=== PATIENT | male | born 1955 | race Caucasian/White ===

== ENCOUNTER 2016-12-31 17:51 | Emergency (ER) ==
[2016-12-31] MEDS ORDERED: NITROGLYCERIN SL PRN (18:06)
[2016-12-31] MEDS ORDERED: ASPIRIN PO STA (18:06)
--- NOTE | 2016-12-31 18:16 | ED EKG INTERP ---
EKG Interpretation - EKG Time of EKG reading by physician:: 18:04 EKG Read and Signed by:: Gamaliel Engle EKG Interpretation (*Must complete 3 of following elements*): Abnormal ( Possible L atrial enlargement; Nonspecific ST abnormality) Rate: 94 Rhythm: NSR Attestation - Scribe Verification/Attestation Scribe:: George Marte Acting as Scribe for:: Gamaliel Engle Scribe documention review:: This chart was documented by a scribe and accurately reflects the service the provider performed and the decisions made by the provider.
--- NOTE | 2016-12-31 18:43 | PROVIDER DOCUMENTATION ---
HPI-Chest Pain - General Source: patient, family - History of Present Illness-CP Location: reports: substernal Chest Pain Radiation: reports: no radiation Quality of Pain: reports: fullness, pressure Severity in ED: moderate Onset/Duration: unsure Timing: still present, intermittent Modifying Factors: improves with: other (belching) Associated Symptoms: reports: abdominal pain. denies: back pain, diaphoresis, dizziness, edema, fatigue, fever/chills, headache, heartburn, nausea, rash, shortness of breath, swelling/lump in chest, syncope, vomiting, weakness Prior Chest Pain/Cardiac Workup: reports: echocardiography <George Marte - Last Filed: 12/31/16 21:30> <Gamaliel Engle - Last Filed: 01/01/17 04:29> - General Chief Complaint: Chest Pain Stated Complaint: CHEST PAIN Time Seen by Provider: 12/31/16 18:20 Allergies/Adverse Reactions: Patient Allergies Allergy/AdvReac Type Severity Reaction Status Date / Time No Known Allergies Allergy Verified 12/31/16 19:06 Home Medications: Home Medication List Medication Instructions Recorded Confirmed Last Taken Type Amlodipine [Norvasc] 5 mg PO DAILY 12/31/16 12/31/16 12/31/16 History Aspirin EC 81 mg PO QHS 12/31/16 12/31/16 1 Day Ago History Hydroxyurea 500 mg PO QAM 12/31/16 12/31/16 12/31/16 History Isosorbide Mononitrate [Isosorbide 60 mg PO QAM 12/31/16 12/31/16 12/31/16 History Mononitrate ER] Losartan/Hydrochlorothiazide 1 each PO QAM 12/31/16 12/31/16 12/31/16 History [Losartan-Hctz 100-12.5 mg Tab] Metoprolol Succinate E.r. [Toprol 50 mg PO BID 12/31/16 12/31/16 12/31/16 History Xl] Prasugrel [Effient] 10 mg PO DAILY 12/31/16 12/31/16 12/31/16 History SIMVAstatin [Zocor] 10 mg PO QHS 12/31/16 12/31/16 12/30/16 History - History of Present Illness-CP Nature of Presenting Problem: Pt is a 61 yom who presents to ER with CC of substernal chest pain that has been intermittent x1 week. Pt and family report that pt is scheduled for a heart cath tomorrow at [place] at 0830 in the morning. Family reports that pt has hx of GI problems and is always belching. Pt reports that he has been to the hospital (multiple hospitals) x4 within the past 2 weeks, but all labs, radiology, ekg's show no acute cause for pt's chest pain. (George Marte) Review of Systems - Adult - REVIEW OF SYSTEMS - ADULT Constitutional: denies: chills, fever, fatique, night sweats, weight gain, weight loss Eyes: reports: no symptoms reported Ears, Nose, Mouth & Throat: reports: no symptoms reported Cardiovascular: reports: chest pain. denies: edema, heart murmur, irregular heart rate, orthopnea, palpitations, poor circulation, PND, syncope Respiratory: denies: chronic cough, cough, dyspnea on exertion, excessive sputum production, hemoptysis, pleurisy, shortness of breath, wheezing Gastrointestinal: reports: abdominal pain, other (frequent belching). denies: hematemesis, constipation, diarrhea, difficulty swallowing, frequent heartburn, nausea, poor appetite, rectal bleeding, vomiting Genitourinary: reports: no symptoms reported Musculoskeletal: reports: no symptoms reported Integumentary: reports: no symptoms reported Neurological: reports: no symptoms reported Psychiatric: reports: no symptoms reported Endocrine: reports: no symptoms reported Hematologic/Lymphatic: reports: no symptoms reported Allergic/Immunologic: reports: no symptoms reported All Other Systems: Reviewed and Negative <George Marte - Last Filed: 12/31/16 21:30> Past History - Adult - PAST MEDICAL HISTORY-ADULT Review of Records: reports: Nursing Assessment Review, Medications Reviewed - IMMUNIZATION STATUS Childhood Immunizations: See Nurse Assessment Flu Vaccine: See Nurse Assessment <George Marte - Last Filed: 12/31/16 21:30> Physical Exam-General - PHYSICAL EXAM-ADULT Initial Vital Signs Reviewed: Yes - CONSTITUTIONAL General Appearance: appears well, alert, no apparent distress. negative: mild distress, moderate distress, severe distress, cachetic, obese, thin, anxious, lethargic, slow to respond, obtunded, combative - NECK Neck: non-tender, full range of motion, supple. negative: C-spine tenderness, limited range of motion, lymphadenopathy - RESPIRATORY Respiratory: chest non-tender, lungs clear, normal breath sounds. negative: respiratory distress, decreased breath sounds, accessory muscle use, wheezing - CARDIOVASCULAR Cardiovascular: normal peripheral pulses, regular rate, rhythm. negative: bradycardia, tachycardia, irregularly irregular - NEUROLOGIC Neurologic: grossly normal, no motor/sensory deficits. negative: facial droop, focal weakness, motor weakness, sensory deficit - PSYCHIATRIC Psych/Mental Status: normal mood/affect, normal thought content, normal thought process, oriented x 3. negative: disoriented x 3, anxious, disheveled, depressed affect, paranoid, tearful <George Marte - Last Filed: 12/31/16 21:30> Progress - REASSESSMENT Reassessment #1 Time Reassessed: 21:18 Status: other (Dr. Engle discussed result of pt's lab work and told pt that he could not be transferred to [facility] because they do not have any open beds. Pt requested to stay at [facility] and go to [facility] in the morning.) - CT/MRI 1 CT Study: Abdomen, Pelvis, Thorax Impression: See EMR Report CT Results: Negative - CONSULTS/PCP/HOSPITALIST Notification #1 *Consult/PCP/Hospitalist*: Dr. Baez (Hospitalist) Time Discussed: 21:30 Consult Disposition: Admit (Dr. Baez denied admitting pt upstairs. Dr. Baez said to keep pt in ER until he goes to [facility] tomorrow morning.) <George Marte - Last Filed: 12/31/16 21:30> <Gamaliel Engle - Last Filed: 01/01/17 04:29> - PLAN OF CARE/RESULTS Progress/Plan/Lab Results: POC: EKG/CT-Xray/Possible transfer to [facility] 2018: Transfer Center to transfer pt to [facility] (Pt has cardiac cath at 0830 in am) 2042: [facility] called and said they do not have any available beds to pt to be transferred to. Vital Signs - 24 hr 12/31/16 18:04 Temperature 98.0 F Pulse Rate 102 H Respiratory 20 Rate Blood Pressure 155/89 O2 Sat by Pulse 98 Oximetry Orders Category Date Time Status Cardiac Monitoring DIRECTED Care 12/31/16 18:06 Active Saline Loc NOW Care 12/31/16 18:06 Active CHEST-2 VIEWS [RAD] Stat Exams 12/31/16 18:06 Taken THORAX/ABDOMEN/PELVIS W/O CONT [CT] Stat Exams 12/31/16 18:32 Taken CBC WITH ELECTRONIC DIFF [HEME] Stat Lab 12/31/16 18:13 Results CK PROFILE [SP CHEM] Stat Lab 12/31/16 18:13 Completed COMPREHENSIVE METABOLIC PANEL [CHEM] Stat Lab 12/31/16 18:13 Completed D-DIMER [CHEM] Stat Lab 12/31/16 18:13 Completed MAGNESIUM [CHEM] Stat Lab 12/31/16 18:13 Completed PRO B-NATRIURETIC PEPTIDE Stat Lab 12/31/16 18:13 Completed PROTIME WITH INR [COAG] Stat Lab 12/31/16 18:13 Completed PTT [COAG] Stat Lab 12/31/16 18:13 Completed TROPONIN T Stat Lab 12/31/16 18:13 Completed Aspirin Med 12/31/16 18:06 Discontinued 325 mg PO STAT STA Nitroglycerin Sl [Nitroglycerin] Med 12/31/16 18:06 Active 0.4 mg SL Q5M PRN PRN EKG [EKG] Stat Ther 12/31/16 18:06 Ordered Laboratory Tests 12/31/16 12/31/16 12/31/16 18:13 18:13 18:13 WBC 7.75 RBC 4.09 L Hgb 15.5 Hct 42.4 MCV 103.7 H MCH 37.9 H MCHC 36.6 RDW Std Deviation 14.5 Plt Count 638 H MPV 10.7 H Immature Gran % (Auto) 0.9 H Neut % (Auto) 70.9 Lymph % (Auto) 18.3 L [place] % (Auto) 8.9 Eos % (Auto) 0.5 Baso % (Auto) 0.5 Immature Gran # (Auto) 0.07 H Neut # (Auto) 5.49 Lymph # (Auto) 1.42 [place] # (Auto) 0.69 H Eos # (Auto) 0.04 Baso # (Auto) 0.04 PT INR PTT (Actin FS) D-Dimer 0.20 Sodium 140 Potassium 4.0 Chloride 95 L Carbon Dioxide 30 Anion Gap 15 BUN 21 Creatinine 1.2 Estimated GFR/1.73 m2 > 60 BUN/Creatinine Ratio 18 Glucose 108 H Calculated Osmolality 283 Calcium 9.1 Magnesium 2.3 Total Bilirubin 0.55 AST 23 ALT 25 Alkaline Phosphatase 79 Creatine Kinase 37 Troponin T Wvv-[id number]-Nmqzzlqveog Pept Total Protein 7.1 Albumin 4.6 Globulin 2.5 Albumin/Globulin Ratio 1.8 12/31/16 12/31/16 12/31/16 18:13 18:13 18:13 WBC RBC Hgb Hct MCV MCH MCHC RDW Std Deviation Plt Count MPV Immature Gran % (Auto) Neut % (Auto) Lymph % (Auto) [place] % (Auto) Eos % (Auto) Baso % (Auto) Immature Gran # (Auto) Neut # (Auto) Lymph # (Auto) [place] # (Auto) Eos # (Auto) Baso # (Auto) PT 11.3 INR 1.07 PTT (Actin FS) 24.5 D-Dimer Sodium Potassium Chloride Carbon Dioxide Anion Gap BUN Creatinine Estimated GFR/1.73 m2 BUN/Creatinine Ratio Glucose Calculated Osmolality Calcium Magnesium Total Bilirubin AST ALT Alkaline Phosphatase Creatine Kinase Troponin T < 0.010 Kft-V-Lbfbvuegoyf Pept 58 Total Protein Albumin Globulin Albumin/Globulin Ratio (George Marte) Departure - Departure Time of Disposition Order: 21:19 Certified Medical Emergency: Emergent <George Marte - Last Filed: 12/31/16 21:30> - Departure Time of Disposition Order: 04:30 Certified Medical Emergency: Emergent <Gamaliel Engle - Last Filed: 01/01/17 04:29> - Departure DIAGNOSIS: Chest pain Disposition: [facility] Condition: Stable Referrals: None,PCP [Primary Care Provider] - Attestation - Scribe Verification/Attestation Scribe:: George Marte Acting as Scribe for:: Gamaliel Engle Scribe documention review:: This chart was documented by a scribe and accurately reflects the service the provider performed and the decisions made by the provider. <George Marte - Last Filed: 12/31/16 21:30> Physician Attestation
[2016-12-31 18:44] LABS: BASO% 0.5 % (0.0-0.8); EOS# 0.04 X1000 (0.0-0.7); EOS% 0.5 % (0.0-10.0); HEMATOCRIT 42.4 % (42.0-52.0); HEMOGLOBIN 15.5 g/dL (14.0-18.0); IMM GRAN# 0.07 X1000 (0.0-0.04); IMM GRAN% 0.9 % (0.0-0.5); LYMPH# 1.42 X1000 (1.2-3.4); LYMPH% 18.3 % (20.5-51.1); MANUAL DIFF NEEDED? YES; MCH 37.9 PG (27-31); MCHC 36.6 g/dL (33-37); MCV 103.7 FL (81-99); MONO# 0.69 X1000 (0.11-0.59); MONO% 8.9 % (1.7-9.3); MPV 10.7 FL (7.4-10.4); NEUT% 70.9 % (42.2-75.2); PLT 638 X1000 (130-400); RBC 4.09 XMIL (4.7-6.1)
[2016-12-31 18:49] LABS: INR 1.07; PROTIME 11.3 Seconds (9.2-11.7); PTT 24.5 Seconds (22.0-36.0)
[2016-12-31 18:51] LABS: AGAP 15; ALBUMIN 4.6 g/dL (3.5-5.0); ALKALINE PHOSPHATASE 79 U/L (32-122); BUN 21 mg/dL (8-22); CALCIUM 9.1 mg/dL (8.8-10.2); CHLORIDE 95 mmol/L (98-107); CK PROFILE 37 U/L (24-204); COSMO 283; GOT 23 U/L (10-34); GPT 25 U/L (10-44); MAGNESIUM 2.3 mg/dL (1.5-2.7); SODIUM 140 mmol/L (136-145); TCO2 30 mmol/L (25-35); TOTAL BILIRUBIN 0.55 mg/dL (0.20-1.00); TOTAL PROTEIN 7.1 g/dL (6.3-8.3)
[2016-12-31 20:23] LABS: BANDS 2 % (0-1); EOS 2 % (1-10); LYMPHS 14 % (21-51); MONO 4 % (1-9)
[2016-12-31 20:26] LABS: POLYCHROM 1+
[2016-12-31 20:28] LABS: LARGE PLATELETS OCCASIONAL
[2016-12-31] MEDS ORDERED: TOPROL XL PO ONE (22:04)
[2016-12-31] MEDS ORDERED: ZOCOR PO ONE ×2 (22:04→22:28)
[2016-12-31] MEDS ORDERED: G.I. COCKTAIL PO ONE (22:05)
--- NOTE | 2017-01-01 05:46 | EKG Report ---
Test Performed on : 12/31/2016 6:04:46 PM Test Reason : Chest Pain Blood Pressure : / mmHG Vent. Rate : 094 BPM Atrial Rate : 094 BPM P-R Int : 152 ms QRS Dur : 090 ms QT Int : 340 ms P-R-T Axes : 048 023 063 degrees QTc Int : 425 ms Normal sinus rhythm. Possible Left atrial enlargement Nonspecific ST abnormality Abnormal ECG No previous ECGs available Unconfirmed Result
[2017-01-01 07:52] VITALS: BP 159/86
--- NOTE | 2017-01-01 08:05 | Diag Imaging Result Document ---
PROCEDURE NAME: THORAX/ABDOMEN/PELVIS W/O CONT - 12/31/2016 CT CHEST ABDOMEN AND PELVIS WITHOUT CONTRAST: COMPARISON: None available. FINDINGS: CHEST: There is minimal subsegmental atelectasis involving the lower lobes bilaterally as well as the lingula. The lungs are clear otherwise. There is no pleural fluid collection or pneumothorax. There is no cardiomegaly. 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 There is no evidence of significant lymphadenopathy. IMPRESSION: Minimal subsegmental atelectasis at the lower lung zones bilaterally. No definite acute chest pathology, otherwise. 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 There are few small cyst density foci arising from the renal cortices bilaterally. No renal or ureteral stones are identified. There is no hydronephrosis. The urinary bladder is grossly unremarkable. The gallbladder and appendix are unremarkable. No free abdominal gas, free fluid, or focal inflammatory changes are identified. There is no evidence of bowel obstruction. The remainder of the solid viscera of the abdomen and pelvis and the remainder of the GI tract is essentially unremarkable. There is multilevel degenerative disk disease throughout the spine. There are degenerative changes at the acetabular roofs bilaterally. The bony structures are grossly intact, otherwise. IMPRESSION: Incidental/nonacute findings detailed above but no definite acute pathology involving the abdomen or pelvis.
--- NOTE | 2017-01-01 10:19 | Diag Imaging Result Document ---
PROCEDURE NAME: CHEST-2 VIEWS - 12/31/2016 FRONTAL AND LATERAL CHEST, TWO VIEWS: COMPARISON: No comparison films. FINDINGS: Sternal wires and surgical clips are present. The lungs are well expanded. The heart is not enlarged. The vessels are not distended. There are no infiltrates. No pleural effusions. No free air beneath the diaphragm. There is a nipple shadow overlying the lower right lung.
== END 2017-01-01 07:55 | disposition short-term general hospital (02) ==
LOC: ED 17:51
DX: R07.9 Chest pain, unspecified (principal); R14.2 Eructation; R10.9 Unspecified abdominal pain; R94.31 Abnormal electrocardiogram [ECG] [EKG]; Z79.899 Other long term (current) drug therapy; Z79.82 Long term (current) use of aspirin
CPT/HCPCS: 71020; 71250; 74176; 80053; 82550; 83735; 83880; 84484; 85025; 85379; 85610; 85730; 93005